=== PATIENT | male | born 1960 | race Caucasian/White ===

== ENCOUNTER 2017-11-14 16:14 | Inpatient (IN) | payer MEDICAID ==
--- NOTE | 2017-11-14 17:26 | ED PDOC ---
HPI: Psych/Substance Abuse Time Seen by Provider: 11/14/17 16:25 Chief Complaint (Nursing): Psychiatric Evaluation Chief Complaint (Provider): Hearing voices History Per: Patient History/Exam Limitations: no limitations Onset/Duration Of Symptoms: Days (Began last night ) Additional Complaint(s): 57 yo male with history of HTN presents with hearing voices since last night. Pt states that he has never been hearing voices in the past. Pt denies psychiatric history. Pt states this morning he drank 2 shots of alcohol in hopes he would stop hearing voices. Denies headache, N/V. Past Medical History Reviewed: Historical Data, Nursing Documentation, Vital Signs Vital Signs: Last Vital Signs Temp 98.5 F 11/14/17 16:19 Pulse 104 H 11/14/17 16:19 Resp 16 11/14/17 16:19 BP 177/89 H 11/14/17 16:19 Pulse Ox 97 11/14/17 16:19 - Medical History PMH: HTN - Surgical History Surgical History: No Surg Hx - Family History Family History: States: Unknown Family Hx - Living Arrangements Living Arrangements: With Family - Social History Current smoker - smoking cessation education provided: No Alcohol: Occasional Drugs: Denies - Home Medications Home Medications: Ambulatory Orders Medication Instructions Recorded Ibuprofen 600 mg PO Q6H PRN #15 tab 06/30/14 traMADol [Ultram] 50 mg PO Q6 PRN #10 tab 06/30/14 - Allergies Allergies/Adverse Reactions: Allergies Allergy/AdvReac Type Severity Reaction Status Date / Time No Known Allergies Allergy Verified 06/30/14 22:09 Review of Systems ROS Statement: Except As Marked, All Systems Reviewed And Found Negative Constitutional: Negative for: Fever, Chills Neurological: Negative for: Headache, Dizziness Psych: Positive for: Psychosis Physical Exam - Reviewed Nursing Documentation Reviewed: Yes Vital Signs Reviewed: Yes - Physical Exam Appears: Positive for: Well, Non-toxic, No Acute Distress Head Exam: Positive for: ATRAUMATIC, NORMAL INSPECTION, NORMOCEPHALIC Skin: Positive for: Normal Color, Warm, DRY Eye Exam: Positive for: Normal appearance ENT: Positive for: Normal ENT Inspection Neck: Positive for: Normal, Painless ROM Cardiovascular/Chest: Positive for: Regular Rate, Rhythm Respiratory: Positive for: CNT, Normal Breath Sounds Back: Positive for: Normal Inspection Extremity: Positive for: Normal ROM Neurologic/Psych: Positive for: Alert, Oriented - ECG O2 Sat by Pulse Oximetry: 97 Pulse Ox Interpretation: Normal Medical Decision Making Medical Decision Making: Pt initially denies psychaitric history however is on remeron. Pt than reports hx of schizophrenia and brother states this is not new. CT head cancelled. CT was then completed by Quincy jones. Endorsed pending labs, medical clearance for psychiatric unit. Disposition - Clinical Impression Clinical Impression: Schizophrenia - Patient ED Disposition Is Patient to be Admitted: Transfer of Care - Disposition Disposition: Transfer of Care Disposition Time: 20:02 Condition: GOOD Instructions: Schizophrenia Forms: [facility] (Azeri)
[2017-11-14 20:28] LABS: BASO # 0.1 K/uL (0.0-0.2); BASO % 0.7 % (0.0-2.0); EOS # 0.3 K/uL (0.0-0.7); EOS % 2.8 % (0.0-4.0); HEMOGLOBIN 12.8 g/dL (12.0-18.0); LYMPH # 2.6 K/uL (1.0-4.3); LYMPH % 24.8 % (20.0-40.0); MEAN CELL VOLUME 100.6 fl (80.0-94.0); MEAN CORPUSCULAR HEMOGLOBIN 34.8 pg (27.0-31.0); MEAN CORPUSCULAR HGB CONC 34.6 g/dL (33.0-37.0); MEAN PLATELET VOLUME 8.5 fl (7.2-11.7); MONO # 0.8 K/uL (0.0-0.8); MONO % 7.1 % (0.0-10.0); NEUT # 6.8 K/uL (1.8-7.0); NEUT % 64.6 % (50.0-75.0); RBC 3.68 Mil/uL (4.40-5.90); RED CELL DISTRIBUTION WIDTH 12.2 % (11.5-14.5); WHITE BLOOD COUNT 10.6 K/uL (4.8-10.8)
[2017-11-14 20:51] LABS: ALB/GLOB RATIO 1.4 (1.0-2.1); ALBUMIN 4.1 g/dL (3.5-5.0); ALT/SGPT 42 U/L (21-72); AST/SGOT 31 U/L (17-59); BLOOD UREA NITROGEN 13 mg/dl (9-20); CALCIUM 9.2 mg/dL (8.4-10.2); GFR AFRICAN-AMERICAN > 60; GFR NON-AFRICAN AMERICAN > 60
[2017-11-14 20:55] LABS: SQUAMOUS EPITHIAL 1 /hpf (0-5); URINE BILIRUBIN NEGATIVE (NEGATIVE); URINE BLOOD NEGATIVE (NEGATIVE); URINE CLARITY CLEAR (Clear); URINE COLOR STRAW (YELLOW); URINE GLUCOSE (UA) NEG (Normal); URINE LEUKOCYTE ESTERASE NEG Leu/uL (Negative); URINE PROTEIN NEGATIVE (NEGATIVE); URINE UROBILINOGEN 0.2-1.0 mg/dL (0.2-1.0)
[2017-11-14 21:06] LABS: BARBITURATES, UR NEGATIVE (NEGATIVE); BENZODIAZEPINES, UR NEGATIVE (NEGATIVE); OPIATES, UR NEGATIVE (NEGATIVE); PHENCYCLIDINE, UR NEGATIVE (NEGATIVE)
[2017-11-14 21:34] VITALS: O2SAT 99
--- NOTE | 2017-11-14 21:53 | ED PDOC ---
- Laboratory Results Result Diagrams: 11/14/17 20:03 11/14/17 20:03 - ECG O2 Sat by Pulse Oximetry: 99 - Progress ED Course And Treament: 1999 Signed out to me pending labs. 2034 On my initial evaluation, pt. in no distress. Calm, cooperative. Pending labs. 2044 Patient is medically cleared for psychiatric admission. Disposition - Clinical Impression Clinical Impression: Schizophrenia - POA Present On Arrival: None - Disposition Disposition: Routine/Home Disposition Time: 21:45 Condition: STABLE
[2017-11-14] MEDS ORDERED: DiphenhydrAMINE 50 mg/ml Inj IM PRN (22:27)
[2017-11-14] MEDS ORDERED: Magnesium Hydroxide Susp 30 ml UD PO PRN (22:27)
--- NOTE | 2017-11-15 06:56 | PCM.BM ---
<RafGrisel Del Rio - Last Filed: 11/15/17 06:54> Treatment Plan Problems - Problems identified on initial assessmt Command/Auditory Hallucinations Date Initiated: 11/15/17 Time Initiated: 06:55 Assessment reference: NA Status: Active Treatment assets and liabiliti Patient Assests: cooperative, ADL independent, physically healthy, negotiates basic needs, cognitively intact Patient Liabilities: financial problems, relationship conflicts, substance abuse - Milieu Protocol Maintain good personal hygiene: daily Encourage regular showers, daily Remind patient to perform daily oral care, daily Assist patient to perform ADL's Conduct patient checks and document Observation sheet: Q15 minutes Maintain personal safety: every shift Educate patient to report safety concerns to staff, every shift Monitor environment for contraband/sharps Medication safety: Monitor for expected outcome, potential side effects: every shift, Assess barriers to learning: every shift, Assess readiness for medication education: every shift <Evi Hair - Last Filed: 11/18/17 16:04> Treatment assets and liabiliti Patient Assests: adapts well, resourceful, self-reliant, strong ezra Family Contact Family involvement: Family/SO is involved Family contact: Patient declines to allow family contact at present - Goals for Treatment Patient goals for treatment: Patient to continue stabilization on 3NP through medication management and group/supportive therapy to address sxs of paranoia, eliminate SI/HI and improve mood. Patient to be encouraged to attend groups regularly to promote self-awareness, sobriety, and improve insight, compliance, coping skills and self-esteem. Patient to be provided with referral for appropriate level of aftercare to reduce risk of future hospitalizations and ensure safety in the community. Discharge/Continuing Care - Education Needs Education Needs: Patient Medication, Patient Diagnosis/Disease Process, Patient Coping Skills, Patient Community resources, Patient Aftercare Safety Plan - Discharge Discharge Criteria: Tolerates medication w/o severe side effects, Free of Suicidal thoughts, Free of Homicidal thoughts, Free of paranoid thoughts, Free of agitation, Normal sleep pattern, Ability to care for self, Reduction of target symptoms Discharge to:: Home, With Family, Other (OPS) - Treatment Team Participation Patient/Family/SO Statement: 11/18/17 16:05 Patient invited to tx team this morning to discuss precursors to admission, progress on 3NP and aftercare. Pt. reports significant improvement in sxs of depression and paranoia since admission. Pt. denies SI/HI and is able to contract for safety on 3NP. Pt. denies experiencing AH/VH since first days of admission. Affect is brighter. Pt. less irritable and significantly more receptive to feedback. Pt. visible on 3NP and observed socializing appropriately with peers. [employer] Art[employer] Operations Specialist explained that since patient currently has [place] Medicaid, outpatient mental health services can only be provided in [facility]. Field Art[employer] Operations Specialist recommended that if patient plans on remaining in [place], patient should work to have Medicaid transferred to [place]. Field Art[employer] Operations Specialist ensured patient that [facility] staff would be contacted and asked to speak with patient to provide additional information regarding Medicaid transfer. Field Art[employer] Operations Specialist to attempt to find outpatient clinic willing to schedule patient for an intake appointment. However, if aftercare cannot be secured, a list of walk-in clinics in [facility] will be provided upon discharge. Patient expressed understanding and is agreeable. Cross- tapering of Abilify and Risperdal explained. Discussed with Family/SO: No Was Patient/Family/SO present at Treatment Team Meeting: Yes <Mary Ellen Hutson - Last Filed: 11/23/17 11:40> - Diagnosis (1) Auditory hallucination Status: Acute Interventions: pharmacotherapy 11/23/17 11:39
[2017-11-15 08:48] LABS: T4 9.63 ug/dl (5.5-11.0)
[2017-11-15] MEDS: Pantoprazole 40 mg EC Tab PO SCH (08:54)
[2017-11-15] MEDS ORDERED: ARIPIPRAZOLE 30 MG PO SCH (09:00)
--- NOTE | 2017-11-15 11:14 | CT ---
Date of service: 11/14/2017 PROCEDURE: CT HEAD WITHOUT CONTRAST. HISTORY: hearing voices, new onset COMPARISON: None available. TECHNIQUE: Axial computed tomography images were obtained through the head/brain without intravenous contrast. Radiation dose: Total exam DLP = 887.99 mGy-cm. This CT exam was performed using one or more of the following dose reduction techniques: Automated exposure control, adjustment of the mA and/or kV according to patient size, and/or use of iterative reconstruction technique. FINDINGS: HEMORRHAGE: No acute parenchymal, subarachnoid or extra-axial hemorrhage. BRAIN: Mild to moderate diffuse/ confluent chronic white matter ischemic changes seen extending peripherally into the deep white matter of both cerebral hemispheres. In addition, there are scattered chronic bilateral basal nuclei lacunar type infarcts seen as well. Mild moderate central volume loss. Vascular calcifications present the the VENTRICLES: No obstructive hydrocephalus. CALVARIUM: Unremarkable. PARANASAL SINUSES: Unremarkable as visualized. No significant inflammatory changes. MASTOID AIR CELLS: Unremarkable as visualized. No inflammatory changes. OTHER FINDINGS: Old fracture deformity right orbital floor. IMPRESSION: No acute intracranial hemorrhage. Mild moderate chronic periventricular white matter ischemic changes with scattered chronic bilateral basal nuclei lacunar type infarcts. Mild moderate central volume loss. . Preliminary report provided by overnight radiology service.
--- NOTE | 2017-11-15 13:12 | CP.PCM.CON ---
History of Present Illness - History of Present Illness History of Present Illness: 57 yo male with history of HTN, HLD and Low Back Pain admitted to psyche unit because of auditory hallucination. Review of Systems - Review of Systems All systems: reviewed and no additional remarkable complaints except (aside from those mentioned above, 12 point system review were negative by me) Past Patient History - Tetanus Immunizations Tetanus Immunization: Unknown - Past Social History Smoking Status: Light Smoker < 10 Cigarettes Daily Chewing Tobacco Use: No Cigar Use: No Alcohol: Occasional Drugs: Denies - CARDIAC Hx Cardiac Disorders: No - PULMONARY Hx Tuberculosis: No - NEUROLOGICAL HX Cerebrovascular Accident: No Hx Seizures: No - RENAL Hx Chronic Kidney Disease: No - ENDOCRINE/METABOLIC Hx Endocrine Disorders: No - HEMATOLOGICAL/ONCOLOGICAL Hx Cancer: No Hx Human Immunodeficiency Virus (HIV): No - INTEGUMENTARY Hx Dermatological Problems: No - MUSCULOSKELETAL/RHEUMATOLOGICAL Hx Back Pain: Yes (herniated disk) - GASTROINTESTINAL Hx Gastritis: Yes (currently on prilosec) - GENITOURINARY/GYNECOLOGICAL Hx Sexually Transmitted Disorders: No - PSYCHIATRIC Hx Substance Use: Yes (heroin use 10 years ago) - SURGICAL HISTORY Hx Surgeries: Yes Hx Herniorrhaphy: Yes - ANESTHESIA Hx Anesthesia: Yes Hx Anesthesia Reactions: No Meds Allergies/Adverse Reactions: Allergies Allergy/AdvReac Type Severity Reaction Status Date / Time No Known Allergies Allergy Verified 06/30/14 22:09 - Medications Medications: Current Medications Acetaminophen (Tylenol 325mg Tab) 650 mg PO Q4 PRN PRN Reason: pain level 4-7 Al Hydrox/Mg Hydrox/Simethicone (Maalox Plus 30 Ml) 30 ml PO Q4 PRN PRN Reason: Dyspepsia Amlodipine Besylate (Norvasc) 5 mg PO DAILY [facility] Last Admin: 11/15/17 08:55 Dose: 5 mg Aripiprazole (Abilify) 30 mg PO DAILY [facility] Last Admin: 11/15/17 08:54 Dose: 30 mg Aspirin (Aspirin Chewable) 81 mg PO DAILY [facility] Last Admin: 11/15/17 08:54 Dose: 81 mg Atorvastatin Calcium (Lipitor) 40 mg PO DAILY [facility] Last Admin: 11/15/17 08:54 Dose: 40 mg Clonidine HCl (Catapres) 0.1 mg PO BID [facility] Last Admin: 11/15/17 08:55 Dose: 0.1 mg Diphenhydramine HCl (Benadryl) 50 mg IM Q6 PRN PRN Reason: Extrapyramidal S/S Unable PO Diphenhydramine HCl (Benadryl) 50 mg PO Q6 PRN PRN Reason: Extrapyramidal Symptoms Diphenhydramine HCl (Benadryl) 50 mg PO HS PRN PRN Reason: Sleep Docusate Sodium (Colace) 100 mg PO TID [facility] Last Admin: 11/15/17 08:53 Dose: 100 mg Haloperidol (Haldol) 5 mg PO Q4 PRN PRN Reason: Agitation Haloperidol Lactate (Haldol) 5 mg IM Q4 PRN PRN Reason: Agitation, Unable to Take PO Ibuprofen (Motrin Tab) 400 mg PO Q6 PRN PRN Reason: low back pain Lorazepam (Ativan) 1 mg IM Q8 PRN PRN Reason: Anxiety/Agitation,Unable PO Lorazepam (Ativan) 1 mg PO Q8 PRN PRN Reason: Anxiety/Agitation Magnesium Hydroxide (Milk Of Magnesia) 30 ml PO HS PRN PRN Reason: Constipation Pantoprazole Sodium (Protonix Ec Tab) 40 mg PO DAILY [facility] Last Admin: 11/15/17 08:54 Dose: 40 mg Physical Exam - Constitutional Appears: No Acute Distress - Head Exam Head Exam: ATRAUMATIC - Eye Exam Eye Exam: absent: Scleral icterus - ENT Exam ENT Exam: Mucous Membranes Moist - Neck Exam Neck exam: Negative for: Meningismus - Respiratory Exam Respiratory Exam: absent: Rales, Rhonchi, Wheezes, Respiratory Distress - Cardiovascular Exam Cardiovascular Exam: REGULAR RHYTHM, +S1, +S2 - GI/Abdominal Exam GI & Abdominal Exam: Soft. absent: Tenderness - Rectal Exam Rectal Exam: Deferred - Extremities Exam Extremities exam: Negative for: pedal edema - Back Exam Back exam: NORMAL INSPECTION - Neurological Exam Neurological exam: Alert, Oriented x3 - Psychiatric Exam Psychiatric exam: Normal Affect - Skin Skin Exam: Dry, Intact Results - Vital Signs Recent Vital Signs: Last Vital Signs Temp 97.5 F L 11/15/17 09:00 Pulse 78 11/15/17 09:00 Resp 20 11/15/17 09:00 BP 159/81 H 11/15/17 09:00 Pulse Ox 99 11/14/17 22:22 - Labs Result Diagrams: 11/14/17 20:03 11/14/17 20:03 Labs: Laboratory Results - last 24 hr 11/14/17 11/14/17 11/14/17 19:56 19:56 20:03 WBC RBC Hgb Hct MCV MCH MCHC RDW Plt Count MPV Neut % (Auto) Lymph % (Auto) Stokes % (Auto) Eos % (Auto) Baso % (Auto) Neut # (Auto) Lymph # (Auto) Stokes # (Auto) Eos # (Auto) Baso # (Auto) Sodium 140 Potassium 4.6 Chloride 104 Carbon Dioxide 22 Anion Gap 19 BUN 13 Creatinine 1.2 Est GFR ( Amer) > 60 Est GFR (Non-Af Amer) > 60 Random Glucose 86 Calcium 9.2 Total Bilirubin 0.3 AST 31 ALT 42 Alkaline Phosphatase 70 Total Protein 7.1 Albumin 4.1 Globulin 3.0 Albumin/Globulin Ratio 1.4 Triglycerides Cholesterol LDL Cholesterol Direct HDL Cholesterol Thyroxine (T4) TSH 3rd Generation Urine Color Straw Urine Clarity Clear Urine pH 6.0 Ur Specific [place] 1.005 Urine Protein Negative Urine Glucose (UA) Neg Urine Ketones Negative Urine Blood Negative Urine Nitrate Negative Urine Bilirubin Negative Urine Urobilinogen 0.2-1.0 Ur Leukocyte Esterase Neg Urine Microscopic WBC < 1 Ur Squamous Epith Cells 1 Urine Opiates Screen Negative Urine Methadone Screen Negative Ur Barbiturates Screen Negative Ur Phencyclidine Scrn Negative Ur Amphetamines Screen Negative U Benzodiazepines Scrn Negative U Oth Cocaine Metabols Negative U Cannabinoids Screen Negative Alcohol, Quantitative 11 H 11/14/17 11/15/17 20:03 07:30 WBC 10.6 RBC 3.68 L Hgb 12.8 Hct 37.1 MCV 100.6 H MCH 34.8 H MCHC 34.6 RDW 12.2 Plt Count 257 MPV 8.5 Neut % (Auto) 64.6 Lymph % (Auto) 24.8 Stokes % (Auto) 7.1 Eos % (Auto) 2.8 Baso % (Auto) 0.7 Neut # (Auto) 6.8 Lymph # (Auto) 2.6 Stokes # (Auto) 0.8 Eos # (Auto) 0.3 Baso # (Auto) 0.1 Sodium Potassium Chloride Carbon Dioxide Anion Gap BUN Creatinine Est GFR ( Amer) Est GFR (Non-Af Amer) Random Glucose Calcium Total Bilirubin AST ALT Alkaline Phosphatase Total Protein Albumin Globulin Albumin/Globulin Ratio Triglycerides 111 Cholesterol 123 LDL Cholesterol Direct 69 HDL Cholesterol 31 Thyroxine (T4) 9.63 TSH 3rd Generation 1.20 Urine Color Urine Clarity Urine pH Ur Specific [place] Urine Protein Urine Glucose (UA) Urine Ketones Urine Blood Urine Nitrate Urine Bilirubin Urine Urobilinogen Ur Leukocyte Esterase Urine Microscopic WBC Ur Squamous Epith Cells Urine Opiates Screen Urine Methadone Screen Ur Barbiturates Screen Ur Phencyclidine Scrn Ur Amphetamines Screen U Benzodiazepines Scrn U Oth Cocaine Metabols U Cannabinoids Screen Alcohol, Quantitative Assessment & Plan (1) Auditory hallucination Status: Acute Comment: psyche is managing
--- NOTE | 2017-11-15 13:57 | PCM.PSYCH ---
Initial Psychiatric Evaluation - Initial Psychiatric Evaluation Type of Admission: Voluntary Chief Complaint (in patient's own words): i was walking and felt panicky Patient's Reaction to Hospitalization: pt is very anxious History of Present Illness and Precipitating Events: This is the ist 3NP admission for this 57 yr old male with h/o schizoaffective disorder recently admitted in [facility] 2 weeks following break up with girlfriend and now came to ER because pt has been hearing voices and feeling very paranoid towards people and does not feel safe .pt is currently prescribed abilify 30 mg daily.pt still feels that he is hallucinating and delusional about people talking to you or about me . Current Medications: Active Medications Generic Name Dose Route Start Last Admin Trade Name Freq PRN Reason Stop Dose Admin Acetaminophen 650 mg 11/14/17 22:27 Tylenol 325mg Tab PO Q4 PRN pain level 4-7 Al Hydrox/Mg Hydrox/Simethicone 30 ml 11/14/17 22:27 Maalox Plus 30 Ml PO Q4 PRN Dyspepsia Amlodipine Besylate 5 mg 11/15/17 09:00 11/15/17 08:55 Norvasc PO 5 mg DAILY [facility] Administration Aripiprazole 30 mg 11/15/17 09:00 11/15/17 08:54 Abilify PO 30 mg DAILY [facility] Administration Aspirin 81 mg 11/15/17 09:00 11/15/17 08:54 Aspirin Chewable PO 81 mg DAILY [facility] Administration Atorvastatin Calcium 40 mg 11/15/17 09:00 11/15/17 08:54 Lipitor PO 40 mg DAILY [facility] Administration Clonidine HCl 0.1 mg 11/15/17 09:00 11/15/17 08:55 Catapres PO 0.1 mg BID [facility] Administration Diphenhydramine HCl 50 mg 11/14/17 22:27 Benadryl IM Q6 PRN Extrapyramidal S/S Unable PO Diphenhydramine HCl 50 mg 11/14/17 22:27 Benadryl PO Q6 PRN Extrapyramidal Symptoms Diphenhydramine HCl 50 mg 11/14/17 22:32 Benadryl PO HS PRN Sleep Docusate Sodium 100 mg 11/15/17 09:00 11/15/17 13:17 Colace PO 100 mg TID [facility] Administration Haloperidol 5 mg 11/14/17 22:27 Haldol PO Q4 PRN Agitation Haloperidol Lactate 5 mg 11/14/17 22:27 Haldol IM Q4 PRN Agitation, Unable to Take PO Ibuprofen 400 mg 11/15/17 13:07 Motrin Tab PO Q6 PRN low back pain Lorazepam 1 mg 11/14/17 22:27 Ativan IM Q8 PRN Anxiety/Agitation,Unable PO Lorazepam 1 mg 11/14/17 22:27 Ativan PO Q8 PRN Anxiety/Agitation Magnesium Hydroxide 30 ml 11/14/17 22:27 Milk Of Magnesia PO HS PRN Constipation Pantoprazole Sodium 40 mg 11/15/17 09:00 11/15/17 08:54 Protonix Ec Tab PO 40 mg DAILY [facility] Administration Past Psychiatric History - Past Psychiatric History Previous Treatment History: Inpatient [facility] [place] Nature of Treatment: depression History of Abuse: 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 History of Family Illness: t my mother has bipolar disorder Pertinent Medical Hx (Current Medical&Sleep Prob, Allergies): Allergies Allergy/AdvReac Type Severity Reaction Status Date / Time No Known Allergies Allergy Verified 06/30/14 22:09 Aripiprazole [Abilify] 30 mg PO DAILY 11/14/17 Aspirin [Aspirin Chewable] 81 mg PO DAILY 11/14/17 Atorvastatin [Lipitor] 40 mg PO DAILY 11/14/17 Docusate [Colace] 100 mg PO TID 11/14/17 Mirtazapine [Remeron] 15 mg PO HS 11/14/17 Omeprazole 40 mg PO DAILY 11/14/17 amLODIPine [Norvasc] 5 mg PO DAILY 11/14/17 cloNIDine [clonidine HCl] 0.1 mg PO BID 11/14/17 h/0 HTN,High cholesterol,Gastritis Review of Systems - Review of Systems All systems: reviewed and no additional remarkable complaints except Mental Status Examination - Affect Affect: Broad - Motor Activity Motor Activity: Calm - Reliability in Providing Information Reliability in Providing Information: Poor, due to alteration in thoughts - Speech Speech: Relevant - Mood Mood: Depressed - Obsessions/Compulsions Obsessions: No Compulsions: No - Cognitive Functions Orientation: Person, Place, Situation, Time Sensorium: Alert Attention/Concentration: Easily distracted Abstract Thinking: [place] Estimate of Intelligence: Average Judgement: Imparied, as evidence by: Poor judgement, Imparied, as evidence by: Lack of insight into illness Memory: Remote intact, as evidenced by: Ability to recall historical events - Risk Risk: Diminished functioning - Strength & Assets Inventory Strength & Assets Inventory: Family support DSM 5 DX - DSM 5 DSM 5 Diagnosis: schizoaffective disorder - Recommended/Plan of Treatment Treatment Recommendations and Plan of Treatment: pt has agreed to start risperdal 1 mg hs to stabilize the psychosis as abilify has not helped and if he improves risperdal can be crosstapered with abilify.
--- NOTE | 2017-11-15 14:43 | RAD ---
Date of service: 11/14/2017 HISTORY: admission to [facility] COMPARISON: No prior study available for comparison the the TECHNIQUE: Chest PA and lateral FINDINGS: LUNGS: No active pulmonary disease. PLEURA: No significant pleural effusion identified. No pneumothorax apparent. Cardiomegaly. CARDIOVASCULAR: OSSEOUS STRUCTURES: No significant abnormalities. VISUALIZED UPPER ABDOMEN: Normal. OTHER FINDINGS: None. IMPRESSION: No active disease.
[2017-11-16] MEDS: Pantoprazole 40 mg EC Tab PO SCH (09:04)
--- NOTE | 2017-11-16 10:11 | CARD ---
APPROVED REPORT Date of service: 11/14/2017 EKG Measurement Heart [id number] <Conclusion> Normal sinus rhythm ST & T wave abnormality, consider inferior ischemia ST & T wave abnormality, consider anterolateral ischemia Abnormal ECG
--- NOTE | 2017-11-16 13:39 | PCM.PYCHPN ---
Psychiatric Progress Note - Psychiatric Progress Note Patient seen today, length of contact: pt seen and evaluated Patient Chief Complaint: pt has remained very paranoid and internally preoccupied and remains avtively psychotic with poor insight and poor judgement and need further stabilization with adjustment of meds .no side effects to meds . Medication Change: Yes (increase risperdal to 1 mg amhs) Mental Status Examination - Cognitive Function Orientation: Person, Place, Situation, Time Attention: Poor Concentration: Poor Association: Loose Fund of Knowledge: WNL - Mood Mood: Depressed - Affect Affect: Broad - Formal Thought Process Formal Thought Process: Hallucinations, Delusions, Paranoia, Flight of ideas - Homicidal Ideation Homicidal Ideation: No Goal/Treatment Plan - Goal/Treatment Plan Progress Toward Problem(s) and Goals/Treatment Plan: Will continue to further stabilize pt by increasing risperdal 1 mg am and hs and will crosstitrate with abilify once pt begins to respond well to risperda. mer engage pt in therapy and groups and monitor for psychotic agitation.
[2017-11-17] MEDS: Pantoprazole 40 mg EC Tab PO SCH (08:45)
--- NOTE | 2017-11-17 09:40 | PCM.PYCHPN ---
Psychiatric Progress Note - Psychiatric Progress Note Patient seen today, length of contact: pt seen and evaluated Patient Chief Complaint: pt reports feeling less paranoid and less irritible and reports decrease in hallucinations .pt is responding well to meds and denies side effects to meds . Medication Change: Yes (increase risperdal to 1 mg amhs) Mental Status Examination - Cognitive Function Orientation: Person, Place, Situation, Time - Mood Mood: Depressed - Affect Affect: Broad - Formal Thought Process Formal Thought Process: Hallucinations, Delusions, Paranoia, Flight of ideas - Homicidal Ideation Homicidal Ideation: No Goal/Treatment Plan - Goal/Treatment Plan Progress Toward Problem(s) and Goals/Treatment Plan: will continue to titrate risperdal to stabilize the psychosis as abilify has not helped and if he improves risperdal can be crosstapered with abilify.
[2017-11-18] MEDS: Pantoprazole 40 mg EC Tab PO SCH (09:04)
--- NOTE | 2017-11-18 14:40 | PCM.PYCHPN ---
Psychiatric Progress Note - Psychiatric Progress Note Patient seen today, length of contact: pt seen and evaluated Patient Chief Complaint: I feel better with the new medicine Problems Identified/Issues Discussed: pt evaluated with treatment team, more interactive with staff, less guarded and less paranoid, more visible on the unit , attending groups pt reported improvement with the start of risperidone, denied any current auditory hallucinations, and reporting partial clearing off of the persecutory delusions discussed with patient continuing cross tapering abilify with risperidone pt denied any current side effects of risperidone , denied command hallucinations, denied suicidal or homicidal ideation DSM 5 Symptoms Update: schizoaffective disorder Medication Change: Yes (decrease abilify) Medical Record Reviewed: Yes Mental Status Examination - Cognitive Function Orientation: Person, Place, Situation, Time Memory: Intact Attention: WNL Concentration: WNL Association: WNL Fund of Knowledge: Poor Decription of patient's judgement and insights: partial insight, fair judgment - Mood Mood: Depressed - Affect Affect: Constricted - Speech Speech: Appropriate - Formal Thought Process Formal Thought Process: Hallucinations, Delusions, Paranoia, Flight of ideas Psychotic Thoughts and Behaviors: partial clearing off of the paranoid delusions - Suicidal Ideation Suicidal Ideation: No - Homicidal Ideation Homicidal Ideation: No Goal/Treatment Plan - Goal/Treatment Plan Need for Continued Stay: Discharge may exacerbated symptoms, Failed transitioning, Severe functional impairment Progress Toward Problem(s) and Goals/Treatment Plan: decrease abilify to 20mg with plan to discontinue continue risperidone 1mg bid with plan to increase gradually monitor pt for psychopharmacological effects and side effect profile grroup and supportive therapy
[2017-11-18] MEDS: Phenylephrine 0.25 % Supp PR SCH (21:14)
[2017-11-19] MEDS: Pantoprazole 40 mg EC Tab PO SCH (08:43)
[2017-11-19] MEDS: Phenylephrine 0.25 % Supp PR SCH ×2 (08:45→17:26)
--- NOTE | 2017-11-19 15:52 | PCM.PYCHPN ---
Psychiatric Progress Note - Psychiatric Progress Note Patient seen today, length of contact: pt seen and evaluated Patient Chief Complaint: I am less paranoid Problems Identified/Issues Discussed: pt evaluated reported feeling better with risperidone, less paranoid, interacting with staff and other patients, discussed gradual cross titrating abilify with risperidone, no reported side effects denied command hallucinations , denied suicidal or homicidal ideation DSM 5 Symptoms Update: schizoaffective disorder Medication Change: Yes (decrease abilify) Medical Record Reviewed: Yes Mental Status Examination - Cognitive Function Orientation: Person, Place, Situation, Time Memory: Intact Attention: WNL Concentration: WNL Association: WNL Fund of Knowledge: Poor Decription of patient's judgement and insights: partial insight, fair judgment - Mood Mood: Depressed - Affect Affect: Constricted - Speech Speech: Appropriate - Formal Thought Process Formal Thought Process: Hallucinations, Delusions, Paranoia, Flight of ideas Psychotic Thoughts and Behaviors: partial clearing off of the paranoid delusions - Suicidal Ideation Suicidal Ideation: No - Homicidal Ideation Homicidal Ideation: No Goal/Treatment Plan - Goal/Treatment Plan Need for Continued Stay: Discharge may exacerbated symptoms, Failed transitioning, Severe functional impairment Progress Toward Problem(s) and Goals/Treatment Plan: decrease abilify to 10mg with plan to discontinue continue risperidone 1mgdaily and 2mg qhs with plan to increase gradually monitor pt for psychopharmacological effects and side effect profile group and supportive therapy
[2017-11-20] MEDS: Alum-Mag Hydrox-Simethicone Susp (30 mL) PO PRN (02:42)
[2017-11-20] MEDS: Phenylephrine 0.25 % Supp PR SCH ×2 (09:42→18:05)
[2017-11-20] MEDS: Pantoprazole 40 mg EC Tab PO SCH (09:43)
--- NOTE | 2017-11-20 14:46 | PCM.PYCHPN ---
Psychiatric Progress Note - Psychiatric Progress Note Patient seen today, length of contact: pt seen and evaluated Patient Chief Complaint: I feel good with risperidone Problems Identified/Issues Discussed: pt evaluated ,, discussed discontinuing abilify and increasing risperidone 2mg bid, pt reported feeling better with risperidone, less paranoid, interacting with staff and other patients, no reported side effects denied command hallucinations, denied suicidal or homicidal ideation DSM 5 Symptoms Update: schizophrenia Medication Change: Yes (discontinue abilify) Medical Record Reviewed: Yes Mental Status Examination - Cognitive Function Orientation: Person, Place, Situation, Time Memory: Intact Attention: WNL Concentration: WNL Association: WNL Fund of Knowledge: Poor Decription of patient's judgement and insights: partial insight, fair judgment - Mood Mood: Depressed - Affect Affect: Constricted - Speech Speech: Appropriate - Formal Thought Process Formal Thought Process: Hallucinations, Delusions, Paranoia, Flight of ideas Psychotic Thoughts and Behaviors: partial clearing off of the paranoid delusions - Suicidal Ideation Suicidal Ideation: No - Homicidal Ideation Homicidal Ideation: No Goal/Treatment Plan - Goal/Treatment Plan Need for Continued Stay: Discharge may exacerbated symptoms, Failed transitioning, Severe functional impairment Progress Toward Problem(s) and Goals/Treatment Plan: discontinue abilify continue risperidone 2mgdaily and 2mg qhs monitor pt for psychopharmacological effects and side effect profile group and supportive therapy
[2017-11-21] MEDS: Alum-Mag Hydrox-Simethicone Susp (30 mL) PO PRN (05:31)
[2017-11-21] MEDS: Pantoprazole 40 mg EC Tab PO SCH (08:47)
[2017-11-21] MEDS: Phenylephrine 0.25 % Supp PR SCH ×2 (08:52→17:46)
--- NOTE | 2017-11-21 08:59 | PCM.PYCHPN ---
Psychiatric Progress Note - Psychiatric Progress Note Patient seen today, length of contact: pt seen and evaluated Patient Chief Complaint: pt reports feeling better denies any paranoea and reports decrease in hallucinations .pt is responding well to meds and denies side effects to meds . Medication Change: Yes (discontinue abilify) Medical Record Reviewed: Yes Mental Status Examination - Cognitive Function Orientation: Person, Place, Situation, Time Memory: Intact Attention: WNL Concentration: WNL Association: WNL Fund of Knowledge: Poor - Mood Mood: Depressed - Affect Affect: Constricted - Speech Speech: Appropriate - Formal Thought Process Formal Thought Process: Hallucinations, Delusions, Paranoia, Flight of ideas - Suicidal Ideation Suicidal Ideation: No - Homicidal Ideation Homicidal Ideation: No Goal/Treatment Plan - Goal/Treatment Plan Need for Continued Stay: Discharge may exacerbated symptoms, Failed transitioning, Severe functional impairment Progress Toward Problem(s) and Goals/Treatment Plan: will continue to titrate risperdal to stabilize the psychosis and engage pt in treatment. Disposition planning as per dr dc
[2017-11-22] MEDS: Pantoprazole 40 mg EC Tab PO SCH (08:35)
[2017-11-22] MEDS: Phenylephrine 0.25 % Supp PR SCH ×2 (08:36→17:29)
[2017-11-22 18:06] VITALS: RESP 20; TEMP 97.6
[2017-11-23] MEDS: Pantoprazole 40 mg EC Tab PO SCH (08:43)
[2017-11-23] MEDS: Phenylephrine 0.25 % Supp PR SCH (08:46)
[2017-11-23 08:47] VITALS: BP 158/80; PULSE 85
--- NOTE | 2017-11-23 13:07 | PCM.PYCHDC ---
Mental Status Examination - Mental Status Examination Orientation: Person, Place, Situation Memory: Intact Mood: Neutral Affect: Broad Speech: Appropriate Attention: WNL Concentration: WNL Association: WNL Fund of Knowledge: WNL Formal Thought Process: No Impairment Description of patient's judgement and insight: partial insight, fair judgment Psychotic Thoughts and Behaviors: pt on discharge, denied any current psychotic symptoms, non elicited Suicidal Ideation: No Current Homicidal Ideation?: No Discharge Summary - Discharge Note Reason for Hospitalization: This is the ist 3NP admission for this 57 yr old male with h/o schizoaffective disorder recently admitted in [facility] 2 weeks following break up with girlfriend and now came to ER because pt has been hearing voices and feeling very paranoid towards people and does not feel safe .pt is currently prescribed abilify 30 mg daily.pt still feels that he is hallucinating and delusional about people talking to you or about me . Psychiatric History (includes Medical, Family, Personal Hx): depression Consultations:: List each consultation separately and include: 1. Reason for request. 2. Findings. 3. Follow-up Summary of Hospital Course include:: 1. Description of specific treatment plan utilized for patients during their course of treatmen. 2. Summarize the time- course for resolution of acute symptoms and/or regressed behaviors. 3. Describe issues identified and worked on during hospitalization. 4. Describe medication utilized. 5. Describe medical problems identified and treated. 6. Reassessment of suicide risk Summary of Hospital Course: pt on admission was presenting with paranoid delusions , believing being monitored and followed by others abiliby was gradually cross titrated with risperidone, CBT , group and supportive therapy provided, pt on discharge was on risperidone 2mg bid pt was compliant with treatment , no reported side effects, , gradually reported clearing off of the paranoid delusions on discharge mental status was stable, pt denied any current suicidal or homicidal ideations, denied psychotic symptoms, non were elicited follow up arranged by transition social worker at [facility] - Diagnosis (1) Auditory hallucination Current Visit: Yes Status: Acute - Final Diagnosis (DSM 5) Condition upon Discharge: STABLE DSM 5: schizophrenia paranoid type Disposition: HOME/ ROUTINE Prescriptions/Medication Reconciliation: Mirtazapine [Remeron] 15 mg PO HS 30 Days #30 tab risperiDONE [RisperDAL Tab] 2 mg PO DAILY 30 Days #30 tab risperiDONE [RisperDAL Tab] 2 mg PO HS #30 tab - Antipsychotic Medications Pt discharged on 2 or more routine antipsychotic medications: No
== END 2017-11-23 15:14 | disposition home or self-care (01) | DRG 430 ==
LOC: H.ER 16:14 → H.ERHOLD 21:45 → H.PSYCH 22:25
PROVIDERS: ADMIT Psychiatry & Neurology Psychiatry; ATTEND Psychiatry & Neurology Psychiatry
PROC: GZHZZZZ Group Psychotherapy (ICD-10-PCS; principal; 2017-11-15)
PROC: GZ51ZZZ Individual Psychotherapy, Behavioral (ICD-10-PCS; 2017-11-15)
DX: F20.0 Paranoid schizophrenia (principal); F11.10 Opioid abuse, uncomplicated; I10 Essential (primary) hypertension; Z79.899 Other long term (current) drug therapy; Z81.8 Family history of other mental and behavioral disorders; Z87.891 Personal history of nicotine dependence; F32.9 Major depressive disorder, single episode, unspecified; K29.70 Gastritis, unspecified, without bleeding; E78.5 Hyperlipidemia, unspecified; M54.5 Low back pain

== ENCOUNTER 2017-11-26 20:17 | Inpatient (IN) | payer MEDICAID ==
--- NOTE | 2017-11-26 20:57 | ED PDOC ---
HPI: Psych/Substance Abuse Time Seen by Provider: 11/26/17 20:30 Chief Complaint (Nursing): Psychiatric Evaluation Chief Complaint (Provider): Crisis History Per: Patient Additional Complaint(s): 57 yo male with history of HTN presents with complaints of severe anxiety. Pt recently admitted to [facility] and diagnosed with Schizophrenia. Pt sent home on Risperdol which hes been complaint with. Pt denies any hallucinations at this time. Denies headache, N/V, Chest pain or SOB, Past Medical History Reviewed: Nursing Documentation, Vital Signs Vital Signs: Last Vital Signs Temp 98.4 F 11/26/17 20:29 Pulse 95 H 11/26/17 20:29 Resp 18 11/26/17 20:29 BP 183/82 H 11/26/17 20:29 Pulse Ox 96 11/26/17 20:29 - Medical History PMH: Anxiety, Depression, Gastritis (currently on prilosec), HTN, Hyperlipidemia , Schizophrenia Denies: Diabetes, Hepatitis, HIV, Chronic Kidney Disease, Seizures, Sexually Transmitted Disease - Family History Family History: States: Unknown Family Hx - Home Medications Home Medications: Ambulatory Orders Medication Instructions Recorded Atorvastatin [Lipitor] 40 mg PO DAILY 11/14/17 Docusate [Colace] 100 mg PO TID 11/14/17 Omeprazole 40 mg PO DAILY 11/14/17 cloNIDine [Catapres] 0.1 mg PO BID 11/14/17 Aspirin [Aspirin Chewable] 81 mg PO DAILY chew 11/23/17 Mirtazapine [Remeron] 15 mg PO HS 30 Days #30 tab 11/23/17 Pantoprazole [Protonix EC Tab] 40 mg PO DAILY ect 11/23/17 Phenylephrine [Preparation H 1 supp UT BID sup 11/23/17 Suppositories] amLODIPine [Norvasc] 5 mg PO DAILY tab 11/23/17 risperiDONE [RisperDAL Tab] 2 mg PO DAILY 30 Days #30 tab 11/23/17 risperiDONE [RisperDAL Tab] 2 mg PO HS #30 tab 11/23/17 - Allergies Allergies/Adverse Reactions: Allergies Allergy/AdvReac Type Severity Reaction Status Date / Time No Known Allergies Allergy Verified 11/26/17 20:32 Review of Systems ROS Statement: Except As Marked, All Systems Reviewed And Found Negative Psych: Positive for: Anxiety Physical Exam - Reviewed Nursing Documentation Reviewed: Yes Vital Signs Reviewed: Yes - Physical Exam Appears: Positive for: Well, Non-toxic, No Acute Distress Head Exam: Positive for: ATRAUMATIC, NORMAL INSPECTION, NORMOCEPHALIC Skin: Positive for: Normal Color, Warm, DRY Eye Exam: Positive for: EOMI, Normal appearance, PERRL ENT: Positive for: Normal ENT Inspection Neck: Positive for: Normal, Painless ROM Cardiovascular/Chest: Positive for: Regular Rate, Rhythm Respiratory: Positive for: CNT, Normal Breath Sounds Gastrointestinal/Abdominal: Positive for: Normal Exam, Soft Back: Positive for: Normal Inspection Extremity: Positive for: Normal ROM Neurologic/Psych: Positive for: Alert, Oriented - Laboratory Results Result Diagrams: 11/26/17 21:56 11/26/17 21:56 - ECG O2 Sat by Pulse Oximetry: 96 Medical Decision Making Medical Decision Making: Pt medicated with Xanax PO EKG interpreted and cleared by ED MD CXR: NAD, as read by SARA CBC, COMP: WNL Alcohol (-) UA and UDS pending Pt underwent crisis eval, medically cleared for admission to [facility]. See crisis notes. Disposition - Clinical Impression Clinical Impression: Anxiety - Patient ED Disposition Is Patient to be Admitted: Yes - Disposition Disposition Time: 23:54 Condition: STABLE Instructions: Anxiety, Adult (DC) Forms: [facility] ([place])
[2017-11-26 22:35] LABS: BASO # 0.1 K/uL (0.0-0.2); BASO % 0.7 % (0.0-2.0); EOS # 0.3 K/uL (0.0-0.7); EOS % 2.4 % (0.0-4.0); HEMOGLOBIN 12.8 g/dL (12.0-18.0); LYMPH % 18.2 % (20.0-40.0); MEAN CELL VOLUME 99.8 fl (80.0-94.0); MEAN CORPUSCULAR HEMOGLOBIN 33.5 pg (27.0-31.0); MEAN CORPUSCULAR HGB CONC 33.5 g/dL (33.0-37.0); MEAN PLATELET VOLUME 7.9 fl (7.2-11.7); MONO # 0.9 K/uL (0.0-0.8); MONO % 8.4 % (0.0-10.0); NEUT # 7.5 K/uL (1.8-7.0); NEUT % 70.3 % (50.0-75.0); RBC 3.84 Mil/uL (4.40-5.90); RED CELL DISTRIBUTION WIDTH 12.3 % (11.5-14.5); WHITE BLOOD COUNT 10.7 K/uL (4.8-10.8)
[2017-11-26 23:21] LABS: BLOOD UREA NITROGEN 17 mg/dl (9-20); GFR NON-AFRICAN AMERICAN > 60
[2017-11-26 23:22] LABS: ALB/GLOB RATIO 1.3 (1.0-2.1); ALBUMIN 4.1 g/dL (3.5-5.0); ALT/SGPT 40 U/L (21-72); AST/SGOT 46 U/L (17-59); CALCIUM 9.1 mg/dL (8.4-10.2)
[2017-11-27 00:57] VITALS: O2SAT 100
--- NOTE | 2017-11-27 01:55 | PCM.BM ---
<JhonyJean Claude - Last Filed: 11/27/17 01:53> Treatment Plan Problems - Problems identified on initial assessmt Anxiety Date Initiated: 11/27/17 Time Initiated: 01:53 Assessment reference: NA Status: Active Panic Attack Date Initiated: 11/27/17 Time Initiated: 01:54 Assessment reference: NA Status: Active Treatment assets and liabiliti Patient Assests: adapts well, cooperative, educated, resourceful, self-reliant, physically healthy, negotiates basic needs, good past tx response, strong ezra Patient Liabilities: financial problems, poor support system, substance abuse ( Homelessness) - Milieu Protocol Maintain good personal hygiene: daily Remind patient to perform daily oral care , every other day Encourage regular showers Conduct patient checks and document Observation sheet: Q15 minutes Maintain personal safety: every shift Educate patient to report safety concerns to staff, every shift Monitor environment for contraband/sharps Medication safety: Monitor for expected outcome, potential side effects: every shift, Assess barriers to learning: every shift, Assess readiness for medication education: every shift <Lisandro Bravo J - Last Filed: 11/27/17 12:14> Family Contact Family involvement: Famliy/SO not involved Family contact: Patient declines to allow family contact at present Family contact name: Pt refused. - Goals for Treatment Patient goals for treatment: Pt reported he would like time to figure out his next move and make plans to get his life together. Pt denied any and all acute psychiatric complaints, and denied SI during admission. Pt reported he sought help because he felt overwhelmed with his family/current living situation. Discharge/Continuing Care - Education Needs Education Needs: Patient Medication, Patient Diagnosis/Disease Process, Patient Coping Skills, Patient Aftercare Safety Plan - Discharge Discharge Criteria: Tolerates medication w/o severe side effects, Free of paranoid thoughts, Free of agitation, Normal sleep pattern, Reduction of target symptoms Discharge to:: Jail - Treatment Team Participation Patient/Family/SO Statement: 11/27/17 12:12 Pt reported he would like to be seen by a hospitalst so he can be placed back on his medical medications. Pt has issues with housing and is debating living with family on [place] or couch surfing with friends. Pt denied SI/HI and AVT hallucinations during treatment team and admission. Pt reported feeling overwhelmed by his family and complained about back pain. Pt reported wanting to seek director long term care disability. Pt was informed that he would most likely be discharged on Thursday, 11/30. Discussed with Family/SO: No Was Patient/Family/SO present at Treatment Team Meeting: Yes
[2017-11-27] MEDS ORDERED: Alum-Mag Hydrox-Simethicone Susp (30 mL) PO PRN (02:01)
[2017-11-27] MEDS ORDERED: DiphenhydrAMINE 50 mg/ml Inj IM PRN ×2 (02:01→02:13)
[2017-11-27] MEDS ORDERED: Magnesium Hydroxide Susp 30 ml UD PO PRN ×2 (02:01→02:13)
--- NOTE | 2017-11-27 08:17 | RAD ---
Date of service: 11/26/2017 PROCEDURE: CHEST RADIOGRAPH, 1 VIEW HISTORY: med screening COMPARISON: None available. FINDINGS: LUNGS: Clear. PLEURA: No pneumothorax or pleural fluid seen. CARDIOVASCULAR: Normal. OSSEOUS STRUCTURES: No significant abnormalities. VISUALIZED UPPER ABDOMEN: Normal. OTHER FINDINGS: None. IMPRESSION: No interval acute cardiopulmonary disease appreciated.
--- NOTE | 2017-11-27 13:04 | PCM.PSYCH ---
Initial Psychiatric Evaluation - Initial Psychiatric Evaluation Type of Admission: Voluntary Legal Status: Capacity Chief Complaint (in patient's own words): I faced many difficulties and I started having suicidal thoughts Patient's Reaction to Hospitalization: pt requested help History of Present Illness and Precipitating Events: pt is 57ys old male with previous diagnosis of schizohrenia paranoid type and cocaine use in full sustained remission, recently discharged from hospital, pt was supposed to reside with family however had conflict with family members, had to leave, became homeless , pt also was facing financial difficulties and became overwhelmed , came to ER seeking help on the unit pt continues to present with depressed mood and affect, passive suicidal ideation without active plan on the unit, low energy, decreased sleep denied any current command hallucinations, denied homicidal ideation Current Medications: Active Medications Generic Name Dose Route Start Last Admin Trade Name Freq PRN Reason Stop Dose Admin Acetaminophen 650 mg 11/27/17 02:13 Tylenol 325mg Tab PO Q4 PRN pain level 4-7 Al Hydrox/Mg Hydrox/Simethicone 30 ml 11/27/17 02:13 Maalox Plus 30 Ml PO Q4 PRN Dyspepsia Diphenhydramine HCl 50 mg 11/27/17 02:13 Benadryl IM Q6 PRN Extrapyramidal S/S Unable PO Diphenhydramine HCl 50 mg 11/27/17 02:13 Benadryl PO Q6 PRN Extrapyramidal Symptoms Haloperidol 5 mg 11/27/17 02:13 Haldol PO Q4 PRN Agitation Haloperidol Lactate 5 mg 11/27/17 02:13 Haldol IM Q4 PRN Agitation, Unable to Take PO Magnesium Hydroxide 30 ml 11/27/17 02:13 Milk Of Magnesia PO HS PRN Constipation Mirtazapine 15 mg 11/27/17 22:00 Remeron PO HS ARIK Mirtazapine 15 mg 11/27/17 22:00 Remeron PO HS ARIK Risperidone 2 mg 11/27/17 09:00 11/27/17 09:17 Risperdal Tab PO 2 mg AMHS ARIK Administration Risperidone 1 mg 11/28/17 09:00 Risperdal Tab PO DAILY ARIK Risperidone 2 mg 11/27/17 22:00 Risperdal Tab PO HS ARIK Past Psychiatric History - Past Psychiatric History Explanation of prior treatment: multiple inpatient hospitalization with partial compliance History of ETOH/Drug Use: hx of cocaine abuse Pertinent Medical Hx (Current Medical&Sleep Prob, Allergies): Allergies Allergy/AdvReac Type Severity Reaction Status Date / Time No Known Allergies Allergy Verified 11/26/17 20:32 Atorvastatin [Lipitor] 40 mg PO DAILY 11/14/17 Docusate [Colace] 100 mg PO TID 11/14/17 Omeprazole 40 mg PO DAILY 11/14/17 cloNIDine [Catapres] 0.1 mg PO BID 11/14/17 Aspirin [Aspirin Chewable] 81 mg PO DAILY chew 11/23/17 Mirtazapine [Remeron] 15 mg PO HS 30 Days #30 tab 11/23/17 Pantoprazole [Protonix EC Tab] 40 mg PO DAILY ect 11/23/17 Phenylephrine [Preparation H Suppositories] 1 supp CO BID sup 11/23/17 amLODIPine [Norvasc] 5 mg PO DAILY tab 11/23/17 risperiDONE [RisperDAL Tab] 2 mg PO DAILY 30 Days #30 tab 11/23/17 risperiDONE [RisperDAL Tab] 2 mg PO HS #30 tab 11/23/17 Mental Status Examination - Personal Presentation Personal Presentation: Looks stated age - Affect Affect: Constricted - Motor Activity Motor Activity: Psychomotor Retardation - Reliability in Providing Information Reliability in Providing Information: Fair - Speech Speech: Relevant - Mood Mood: Depressed, Anxious - Formal Thought Process Formal Thought Process: Circumstantial - Hallucinations/Delusions Additional comments: pt denied current perceptual; disturbances - Obsessions/Compulsions Obsessions: No Compulsions: No - Cognitive Functions Orientation: Person, Place, Situation Sensorium: Alert Attention/Concentration: Attentive Abstract Thinking: [place] Judgement: Imparied, as evidence by: Poor judgement, Imparied, as evidence by: Lack of insight into illness - Risk Risk: Suicidal, Diminished functioning - Strength & Assets Inventory Strength & Assets Inventory: Life experience - Limitations Additional comments: financial difficulties DSM 5 DX - DSM 5 DSM 5 Diagnosis: schizophrenia paranoid type - Recommended/Plan of Treatment Treatment Recommendations and Plan of Treatment: start remeron 15mg qhs for depression and insomnia restart risperidone 1mg qhs and 2mg qhs CBT group and supportive therapy
[2017-11-27] MEDS: Phenylephrine 0.25 % Supp PR SCH (21:17)
[2017-11-28] MEDS: Alum-Mag Hydrox-Simethicone Susp (30 mL) PO PRN (06:18)
[2017-11-28] MEDS: Pantoprazole 40 mg EC Tab PO SCH (09:10)
[2017-11-28] MEDS: Phenylephrine 0.25 % Supp PR SCH ×2 (09:11→17:31)
--- NOTE | 2017-11-28 12:14 | PCM.PYCHPN ---
Psychiatric Progress Note - Psychiatric Progress Note Patient seen today, length of contact: pt evaluated discussed with team chart reviewed Patient Chief Complaint: I need to sort things with my family Problems Identified/Issues Discussed: pt evaluated reported feeling depressed,due to his current living situation and financial difficulties, at admission could not see hope in his current situation, CBT provided, discussed with patient need to develop alternative thoughts and more healthy coping skills with stress no reported side effects of medications, pt denied any current sucidal or homicidal ideation denied perceptual disturbances Medical Problems: multiple inpatient hospitalization with partial compliance DSM 5 Symptoms Update: schizophrenia paranoid type Medication Change: No Medical Record Reviewed: Yes Mental Status Examination - Cognitive Function Orientation: Person, Place, Situation Memory: Intact Attention: WNL Concentration: WNL Association: WNL Fund of Knowledge: [facility] Decription of patient's judgement and insights: partial insight , poor judgment - Mood Mood: Depressed, Anxious - Affect Affect: Constricted - Speech Speech: Soft - Formal Thought Process Formal Thought Process: Circumstantial Psychotic Thoughts and Behaviors: pt denied current psychotic symptoms , non elicited - Suicidal Ideation Suicidal Ideation: No - Homicidal Ideation Homicidal Ideation: No Goal/Treatment Plan - Goal/Treatment Plan Need for Continued Stay: Severe depression anxiety, Discharge may exacerbated symptoms, Failed transitioning Progress Toward Problem(s) and Goals/Treatment Plan: remeron 15mg qhs for depression and insomnia risperidone 1mg daily and 2mg qhs CBT group and supportive therapy
--- NOTE | 2017-11-28 19:25 | CP.PCM.CON ---
History of Present Illness - History of Present Illness History of Present Illness: 57 yo male with history of HTN, HLD and Low Back Pain recently discharged from psyche unit came back because of depression and suicidal ideation. ad Review of Systems - Review of Systems All systems: reviewed and no additional remarkable complaints except (aside from those mentioned above, 12 point system review were negative by me) Past Patient History - Tetanus Immunizations Tetanus Immunization: Unknown - Past Social History Smoking Status: Light Smoker < 10 Cigarettes Daily - CARDIAC Hx Cardiac Disorders: Yes Hx Hypertension: Yes - PULMONARY Hx Tuberculosis: No - NEUROLOGICAL Hx Seizures: No - HEENT Hx HEENT Problems: No - RENAL Hx Chronic Kidney Disease: No - ENDOCRINE/METABOLIC Hx Endocrine Disorders: No - HEMATOLOGICAL/ONCOLOGICAL Hx Human Immunodeficiency Virus (HIV): No - INTEGUMENTARY Hx Dermatological Problems: No - MUSCULOSKELETAL/RHEUMATOLOGICAL Hx Back Pain: Yes (herniated disk) - GASTROINTESTINAL Hx Gastritis: Yes (currently on prilosec) - GENITOURINARY/GYNECOLOGICAL Hx Genitourinary Disorders: No Hx Sexually Transmitted Disorders: No - PSYCHIATRIC Hx Substance Use: Yes - SURGICAL HISTORY Hx Surgeries: Yes Hx Herniorrhaphy: Yes - ANESTHESIA Hx Anesthesia: Yes Hx Anesthesia Reactions: No Meds Allergies/Adverse Reactions: Allergies Allergy/AdvReac Type Severity Reaction Status Date / Time No Known Allergies Allergy Verified 11/26/17 20:32 - Medications Medications: Current Medications Acetaminophen (Tylenol 325mg Tab) 650 mg PO Q4 PRN PRN Reason: pain level 4-7 Al Hydrox/Mg Hydrox/Simethicone (Maalox Plus 30 Ml) 30 ml PO Q4 PRN PRN Reason: Dyspepsia Last Admin: 11/28/17 06:18 Dose: 30 ml Amlodipine Besylate (Norvasc) 5 mg PO DAILY [facility] Last Admin: 11/28/17 09:11 Dose: 5 mg Aspirin (Aspirin Chewable) 81 mg PO DAILY [facility] Last Admin: 11/28/17 09:10 Dose: 81 mg Atorvastatin Calcium (Lipitor) 40 mg PO HS [facility] Last Admin: 11/27/17 21:17 Dose: 40 mg Clonidine HCl (Catapres) 0.1 mg PO BID [facility] Last Admin: 11/28/17 17:30 Dose: 0.1 mg Diphenhydramine HCl (Benadryl) 50 mg IM Q6 PRN PRN Reason: Extrapyramidal S/S Unable PO Diphenhydramine HCl (Benadryl) 50 mg PO Q6 PRN PRN Reason: Extrapyramidal Symptoms Docusate Sodium (Colace) 100 mg PO TID [facility] Last Admin: 11/28/17 17:31 Dose: 100 mg Haloperidol (Haldol) 5 mg PO Q4 PRN PRN Reason: Agitation Haloperidol Lactate (Haldol) 5 mg IM Q4 PRN PRN Reason: Agitation, Unable to Take PO Hydroxyzine Pamoate (Vistaril) 50 mg PO Q8 PRN PRN Reason: Anxiety Ibuprofen (Motrin Tab) 400 mg PO Q8H PRN PRN Reason: pain level 8-10 Last Admin: 11/28/17 16:24 Dose: 400 mg Magnesium Hydroxide (Milk Of Magnesia) 30 ml PO HS PRN PRN Reason: Constipation Mirtazapine (Remeron) 15 mg PO HS [facility] Last Admin: 11/27/17 21:20 Dose: Not Given Pantoprazole Sodium (Protonix Ec Tab) 40 mg PO DAILY [facility] Last Admin: 11/28/17 09:10 Dose: 40 mg Phenylephrine HCl (Preparation H Suppositories) 1 supp OK BID [facility] Last Admin: 11/28/17 17:31 Dose: 1 supp Risperidone (Risperdal Tab) 1 mg PO DAILY [facility] Last Admin: 11/28/17 11:51 Dose: 1 mg Risperidone (Risperdal Tab) 2 mg PO HS [facility] Last Admin: 11/27/17 21:20 Dose: Not Given Physical Exam - Constitutional Appears: No Acute Distress - Head Exam Head Exam: ATRAUMATIC - Eye Exam Eye Exam: absent: Scleral icterus - ENT Exam ENT Exam: Mucous Membranes Moist - Neck Exam Neck exam: Negative for: Meningismus - Respiratory Exam Respiratory Exam: absent: Rales, Rhonchi, Wheezes, Respiratory Distress - Cardiovascular Exam Cardiovascular Exam: REGULAR RHYTHM, +S1, +S2 - GI/Abdominal Exam GI & Abdominal Exam: Soft. absent: Tenderness - Rectal Exam Rectal Exam: Deferred - Neurological Exam Neurological exam: Alert, Oriented x3 - Psychiatric Exam Psychiatric exam: Normal Affect - Skin Skin Exam: Dry, Intact Results - Vital Signs Recent Vital Signs: Last Vital Signs Temp 97.9 F 11/27/17 17:00 Pulse 89 11/27/17 21:18 Resp 20 11/27/17 17:00 BP 165/91 H 11/28/17 17:30 Pulse Ox 100 11/27/17 00:56 - Labs Result Diagrams: 11/26/17 21:56 11/26/17 21:56 Assessment & Plan (1) Depression Status: Acute Comment: psyche is managing (2) HTN (hypertension) Status: Chronic Comment: BP slightly elevated. increase Norvasc to 10mg PO daily. Clonidine 0.1mg PO BID (3) Low back pain Status: Chronic Comment: on Motrin 400mg PO q 8hrs
--- NOTE | 2017-11-28 20:47 | CARD ---
APPROVED REPORT Date of service: 11/26/2017 EKG Measurement Heart [id number] <Conclusion> Sinus rhythm with premature atrial complexes ST & Marked T wave abnormality, consider anterolateral ischemia Prolonged QT Abnormal ECG
[2017-11-29] MEDS: Pantoprazole 40 mg EC Tab PO SCH (08:56)
[2017-11-29] MEDS: Phenylephrine 0.25 % Supp PR SCH ×2 (09:26→17:35)
--- NOTE | 2017-11-29 12:42 | PCM.PYCHPN ---
Psychiatric Progress Note - Psychiatric Progress Note Patient seen today, length of contact: pt evaluated discussed with team chart reviewed Patient Chief Complaint: I feel better today Problems Identified/Issues Discussed: pt evaluated reported feeling less depressed,, reported back pain, discussed increasing dose of motrin no reported side effects of medications, pt denied any current suicidal or homicidal ideation denied perceptual disturbances Medical Problems: multiple inpatient hospitalization with partial compliance DSM 5 Symptoms Update: schizophrenia paranoid type Medication Change: No Medical Record Reviewed: Yes Mental Status Examination - Cognitive Function Orientation: Person, Place, Situation Memory: Intact Attention: WNL Concentration: WNL Association: WNL Fund of Knowledge: [facility] Decription of patient's judgement and insights: partial insight , poor judgment - Mood Mood: Depressed, Anxious - Affect Affect: Constricted - Speech Speech: Soft - Formal Thought Process Formal Thought Process: Circumstantial Psychotic Thoughts and Behaviors: pt denied current psychotic symptoms , non elicited - Suicidal Ideation Suicidal Ideation: No - Homicidal Ideation Homicidal Ideation: No Goal/Treatment Plan - Goal/Treatment Plan Need for Continued Stay: Severe depression anxiety, Discharge may exacerbated symptoms, Failed transitioning Progress Toward Problem(s) and Goals/Treatment Plan: remeron 15mg qhs for depression and insomnia risperidone 1mg daily and 2mg qhs CBT group and supportive therapy
[2017-11-30] MEDS: Alum-Mag Hydrox-Simethicone Susp (30 mL) PO PRN (05:45)
[2017-11-30] MEDS: Pantoprazole 40 mg EC Tab PO SCH (08:40)
[2017-11-30] MEDS: Phenylephrine 0.25 % Supp PR SCH (08:41)
[2017-11-30 08:43] VITALS: BP 151/78; PULSE 87
[2017-11-30 09:47] VITALS: RESP 18; TEMP 97.7
--- NOTE | 2017-11-30 12:35 | PCM.PYCHDC ---
Mental Status Examination - Mental Status Examination Orientation: Person, Place, Situation Memory: Intact Mood: Neutral Affect: Broad Speech: Appropriate Attention: WNL Concentration: WNL Association: WNL Fund of Knowledge: WNL Formal Thought Process: No Impairment Description of patient's judgement and insight: partial insight , poor judgment Psychotic Thoughts and Behaviors: pt denied current psychotic symptoms , non elicited Suicidal Ideation: No Current Homicidal Ideation?: No Discharge Summary - Discharge Note Reason for Hospitalization: pt is 57ys old male with previous diagnosis of schizohrenia paranoid type and 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 Reason for request. 2. Findings. 3. Follow-up Summary of Hospital Course include:: 1. Description of specific treatment plan utilized for patients during their course of treatmen. 2. Summarize the time- course for resolution of acute symptoms and/or regressed behaviors. 3. Describe issues identified and worked on during hospitalization. 4. Describe medication utilized. 5. Describe medical problems identified and treated. 6. Reassessment of suicide risk Summary of Hospital Course: pt on admission, was re started on risperidone an remeron CBT group and supportive therapy provided pt was compliant with treatment no reported side effects of medications on discharge mental status was stable, pt denied any current suicidal or homicidal ideation, denied perceptual disturbances follow up arranged by aids social worker at [place] outpatient - Final Diagnosis (DSM 5) Condition upon Discharge: STABLE DSM 5: schizophrenia paranoid type Disposition: HOME/ ROUTINE - Smoking Cessation Smoking Cessation Medication prescribed: No - Antipsychotic Medications Pt discharged on 2 or more routine antipsychotic medications: No
== END 2017-11-30 10:40 | disposition home or self-care (01) | DRG 430 ==
LOC: H.ER 20:17 → H.ERHOLD 11-27 00:07 → H.PSYCH 11-27 01:44
PROVIDERS: ADMIT Psychiatry & Neurology Psychiatry; ATTEND Psychiatry & Neurology Psychiatry
PROC: GZHZZZZ Group Psychotherapy (ICD-10-PCS; principal; 2017-11-27)
PROC: GZ58ZZZ Individual Psychotherapy, Cognitive-Behavioral (ICD-10-PCS; 2017-11-27)
PROC: GZ56ZZZ Individual Psychotherapy, Supportive (ICD-10-PCS; 2017-11-27)
DX: F20.0 Paranoid schizophrenia (principal); F32.9 Major depressive disorder, single episode, unspecified; R45.851 Suicidal ideations; I10 Essential (primary) hypertension; G47.00 Insomnia, unspecified; F41.9 Anxiety disorder, unspecified; K29.70 Gastritis, unspecified, without bleeding; E78.5 Hyperlipidemia, unspecified; Z59.0 Homelessness; M54.5 Low back pain

== ENCOUNTER 2017-12-11 07:45 | Emergency (ER) | payer MEDICAID, OTHER ==
[2017-12-11 07:54] VITALS: BMI 29.9
[2017-12-11 07:55] VITALS: BP 142/78; PULSE 89; RESP 20; TEMP 98.4; O2SAT 97
--- NOTE | 2017-12-11 09:33 | ED PDOC ---
HPI: Back Time Seen by Provider: 12/11/17 08:14 Chief Complaint (Nursing): Back Pain Chief Complaint (Provider): Back Pain History Per: Patient History/Exam Limitations: no limitations Onset/Duration Of Symptoms: Days (2x) Current Symptoms Are (Timing): Still Present Quality Of Discomfort: "Pain" Exacerbating Factor(s): Movement Additional Complaint(s): 57 year old male presents to the ED for an evaluation of lower back pain onset for 2 days. Reports the pain becomes worse when bending down or with movement. He took Motrin without any relief. Denies fever, blood in urine, burning sensation when urinating or incontinence. PMD: No Family Provider Past Medical History Reviewed: Historical Data, Nursing Documentation, Vital Signs Vital Signs: Last Vital Signs Temp 98.4 F 12/11/17 07:54 Pulse 89 12/11/17 07:54 Resp 20 12/11/17 07:54 BP 142/78 12/11/17 07:54 Pulse Ox 97 12/11/17 07:54 - Medical History PMH: Anxiety, Asthma, Depression, Gastritis (currently on prilosec), HTN, Hyperlipidemia, Schizophrenia Denies: Diabetes, Hepatitis, HIV, Chronic Kidney Disease, Seizures, Sexually Transmitted Disease - Family History Family History: States: Unknown Family Hx - Social History Current smoker - smoking cessation education provided: Yes Alcohol: None Drugs: Denies - Home Medications Home Medications: Ambulatory Orders Medication Instructions Recorded Atorvastatin [Lipitor] 40 mg PO HS 11/14/17 Docusate [Colace] 100 mg PO TID 11/14/17 cloNIDine [Catapres] 0.1 mg PO BID 11/14/17 Aspirin [Aspirin Chewable] 81 mg PO DAILY chew 11/23/17 Mirtazapine [Remeron] 15 mg PO HS 30 Days #30 tab 11/23/17 Pantoprazole [Protonix EC Tab] 40 mg PO DAILY ect 11/23/17 amLODIPine [Norvasc] 5 mg PO DAILY tab 11/23/17 risperiDONE [RisperDAL Tab] 2 mg PO DAILY 30 Days #30 tab 11/23/17 risperiDONE [RisperDAL Tab] 2 mg PO HS #30 tab 11/23/17 Ibuprofen [Motrin Tab] 600 mg PO Q8 PRN tab 11/30/17 Mirtazapine [Remeron] 15 mg PO HS tab 11/30/17 Phenylephrine [Preparation H 1 supp SD BID sup 11/30/17 Suppositories] risperiDONE [RisperDAL Tab] 1 mg PO DAILY tab 11/30/17 risperiDONE [RisperDAL Tab] 2 mg PO HS tab 11/30/17 Cyclobenzaprine [Cyclobenzaprine 10 mg PO TID #30 tab 12/11/17 HCl] Naproxen [Naprosyn] 500 mg PO BID PRN #20 tablet 12/11/17 - Allergies Allergies/Adverse Reactions: Allergies Allergy/AdvReac Type Severity Reaction Status Date / Time No Known Allergies Allergy Verified 11/26/17 20:32 Review of Systems ROS Statement: Except As Marked, All Systems Reviewed And Found Negative Constitutional: Negative for: Fever Genitourinary Male: Negative for: Dysuria, Frequency, Incontinence Musculoskeletal: Positive for: Back Pain Physical Exam - Reviewed Nursing Documentation Reviewed: Yes Vital Signs Reviewed: Yes - Physical Exam Appears: Positive for: Well, Non-toxic, No Acute Distress Head Exam: Positive for: ATRAUMATIC, NORMAL INSPECTION, NORMOCEPHALIC Skin: Positive for: Normal Color, Warm, Dry Eye Exam: Positive for: EOMI, Normal appearance, PERRL ENT: Positive for: Normal ENT Inspection Neck: Positive for: Normal, Painless ROM, Supple. Negative for: Decreased ROM Cardiovascular/Chest: Positive for: Regular Rate, Rhythm. Negative for: Murmur Respiratory: Positive for: Normal Breath Sounds. Negative for: Decreased Breath Sounds, Wheezing, Respiratory Distress Gastrointestinal/Abdominal: Positive for: Normal Exam, Bowel Sounds, Soft. Negative for: Tenderness, Guarding, Rebound Back: Negative for: Normal Inspection (musculoskeletal palpable tenderness) Extremity: Positive for: Normal ROM. Negative for: Tenderness, Pedal Edema, Deformity Neurologic/Psych: Positive for: Alert, Oriented (x3), Gait (steady). Negative for: Motor/Sensory Deficits - ECG O2 Sat by Pulse Oximetry: 97 (RA) Pulse Ox Interpretation: Normal - Progress Re-evaluation Time: 11:00 (patient is ambulating without pain) Condition: Improved Medical Decision Making Medical Decision Making: Time: 909 Initial Impression: back pain Initial Plan: --ED Urine Dipstick --Flexeril 10mg PO --Toradol 60mg --Tylenol 650mg --Reevaluation Scribe Attestation: Documented by Mercedes Leigh, acting as a scribe for Qiana Wood MD Provider Scribe Attestation: All medical record entries made by the Scribe were at my direction and personally dictated by me. I have reviewed the chart and agree that the record accurately reflects my personal performance of the history, physical exam, medical decision making, and the department course for this patient. I have also personally directed, reviewed, and agree with the discharge instructions and disposition. Disposition - Clinical Impression Clinical Impression: Acute back pain - Patient ED Disposition Is Patient to be Admitted: No Doctor Will See Patient In The: Office Counseled Patient/Family Regarding: Diagnosis, Need For Followup, Rx Given - Disposition Referrals: [facility] [Outside] [facility] [Outside] Disposition: Routine/Home Disposition Time: 11:00 Condition: STABLE Prescriptions: Cyclobenzaprine [Cyclobenzaprine HCl] 10 mg PO TID #30 tab Naproxen [Naprosyn] 500 mg PO BID PRN #20 tablet PRN Reason: Pain, Moderate (4-7) Instructions: Muscle Spasms (DC) Forms: [employer] ([place]) - POA Present On Arrival: None
== END 2017-12-11 11:52 | disposition home or self-care (01) ==
LOC: H.ER 07:45
DX: M54.9 Dorsalgia, unspecified (principal); E78.5 Hyperlipidemia, unspecified; I10 Essential (primary) hypertension
CPT/HCPCS: 96372; 99283; J1885